=== PATIENT | female | born 1995 | race Caucasian/White ===

== ENCOUNTER 2019-01-19 07:33 | Observation (INO) | payer MEDICAID ==
[2019-01-19] MEDS: CEFAZOLIN 1 GM/50 ML (PMX) 50 ML IVPB (07:00)
[2019-01-19 09:16] LABS: ADD MAN DIFF? NO
[2019-01-19 09:20] LABS: WHITE BLOOD COUNT 7.1 10^3/ul (4.8-10.8)
[2019-01-19 09:20] LABS: BASOPHILS % 0.1 % (0.0-2.0); EOSINOPHILS # 0.1 10^3/ul (0.0-0.5); EOSINOPHILS % 1.4 % (0.0-7.0); HEMATOCRIT 39.5 % (37.0-47.0); HEMOGLOBIN 13.1 g/dl (12.0-16.0); LYMPHOCYTES # 2.6 10^3/ul (0.8-2.9); LYMPHOCYTES % 36.4 % (15.0-51.0); MEAN CORPUSCULAR HEMOGLOBIN 28.2 pg (29.0-33.0); MEAN CORPUSCULAR HGB CONC 33.2 g/dl (32.0-37.0); MEAN CORPUSCULAR VOLUME 85.1 fl (82.0-101.0); MEAN PLATELET VOLUME 9.3 fl (7.4-10.4); MONOCYTE # 0.6 10^3/ul (0.3-0.9); MONOCYTES % 7.9 % (0.0-11.0); NEUTROPHIL # 3.8 10^3/ul (1.6-7.5); NEUTROPHILS % 54.1 % (39.0-77.0); PLATELET COUNT 316 10^3/UL (140-415); RED BLOOD COUNT 4.64 10^6/ul (4.20-5.40); RED CELL DISTRIBUTION WIDTH 12.6 % (11.5-14.5)
[2019-01-19] MEDS: SOD CHLORIDE 0.9% 1,000 ML IV (09:24)
[2019-01-19 09:48] LABS: ALANINE AMINOTRANSFERASE 32 IU/L (13-69); ALBUMIN 4.5 g/dl (3.3-4.9); ALBUMIN/GLOBULIN RATIO 1.07; ALKALINE PHOSPHATASE 172 IU/L (42-121); ANION GAP 13 (5-13); ASPARTATE AMINO TRANSFERASE 25 IU/L (15-46); BILIRUBIN,INDIRECT 0.4 mg/dl (0-1.1); BILIRUBIN,TOTAL 0.4 mg/dl (0.2-1.3); BLOOD UREA NITROGEN 14 mg/dl (7-20); CALCIUM 9.7 mg/dl (8.4-10.2); CARBON DIOXIDE 23 mmol/L (21-31); CHLORIDE 108 mmol/L (97-110); Estimated GFR > 60 mL/min (>60); GLUCOSE 96 mg/dl (70-220); POTASSIUM 3.5 mmol/L (3.5-5.1); TOTAL PROTEIN 8.7 g/dl (6.1-8.1)
[2019-01-19 09:49] LABS: INR 0.97; PARTIAL THROMBOPLASTIN TIME 29.2 Sec (23.0-35.0)
[2019-01-19 09:54] LABS: CREATININE 0.31 mg/dl (0.44-1.00); SODIUM 144 mmol/L (135-144)
[2019-01-19] MEDS: ACETAMINOPHEN 500 MG TAB PO (10:10)
[2019-01-19] MEDS ORDERED: CEFAZOLIN 1 GM INJ (11:03)
[2019-01-19] MEDS ORDERED: PROPOFOL 20 ML (11:03)
[2019-01-19] MEDS ORDERED: LIDOCAINE 2% (SDV) 5 ML INJ (11:03)
[2019-01-19] MEDS ORDERED: MIDAZOLAM 1 MG/ML 2 ML INJ (11:04)
[2019-01-19] MEDS ORDERED: HYDROmorphONE 2 MG/ML SYG (11:04)
[2019-01-19] MEDS ORDERED: DEXAMETHASONE 4 MG/ML 5 ML INJ (12:05)
[2019-01-19] MEDS ORDERED: FAMOTIDINE 20 MG INJ (12:05)
[2019-01-19] MEDS ORDERED: ONDANSETRON 4 MG INJ (12:05)
[2019-01-19] MEDS ORDERED: METOCLOPRAMIDE 10 MG INJ ×2 (12:05→14:46)
[2019-01-19] MEDS ORDERED: HYDROmorphONE 1 MG/5 ML IV SYRINGE IV (13:00)
[2019-01-19] MEDS ORDERED: MEPERIDINE 25 MG INJ IV (13:00)
[2019-01-19] MEDS ORDERED: OXYCODONE/ACETAMINOPHEN (5/325) TAB PO (13:00)
[2019-01-19] MEDS ORDERED: FENTAnyl 50 MCG/ML VIAL (13:28)
[2019-01-19] MEDS ORDERED: morphine 2 MG INJ IV (13:30)
[2019-01-19] MEDS: HYDROmorphONE 1 MG/5 ML IV SYRINGE IV ×3 (13:42→15:49)
[2019-01-19] MEDS: OXYCODONE/ACETAMINOPHEN (5/325) TAB PO (13:42)
[2019-01-19] MEDS: ONDANSETRON 4 MG INJ IV ×2 (13:42→21:04)
[2019-01-19] MEDS: LABETALOL HCL 20MG INJ IV (14:11)
[2019-01-19] MEDS: METOCLOPRAMIDE 10 MG INJ IV (15:05)
[2019-01-19] MEDS: D5W-0.45 NACL + KCL 20 MEQ 1,000 ML IV ×2 (17:22→21:06)
[2019-01-19] MEDS ORDERED: METOPROLOL 5 MG INJ IV (20:00)
[2019-01-19] MEDS ORDERED: METOCLOPRAMIDE 10 MG INJ IV (20:30)
[2019-01-19] MEDS: METHIMAZOLE 5 MG TAB PO (22:06)
[2019-01-20] MEDS: ACETAMINOPHEN 1000MG/100ML IV 100 ML IVPB (01:28)
[2019-01-20] MEDS: D5W-0.45 NACL + KCL 20 MEQ 1,000 ML IV ×2 (01:29→11:24)
[2019-01-20] MEDS: METHIMAZOLE 5 MG TAB PO (08:51)
[2019-01-20] MEDS: AL HYDROX/MG HYDROX/SIMETH 30 ML CUP PO (16:35)
== END 2019-01-20 16:47 | disposition home or self-care (01) ==
LOC: SDS 07:33 → REC 13:07 → PP2 16:07
DX: C50.111 Malignant neoplasm of central portion of right female breast (principal); E05.90 Thyrotoxicosis, unspecified without thyrotoxic crisis or storm; I49.9 Cardiac arrhythmia, unspecified
CPT/HCPCS: 14000; 80053; 84703; 85025; 85610; 85730; 88309; 88341; 88342